=== PATIENT | male | born 1995 | race Caucasian/White ===

== ENCOUNTER 2021-01-21 10:10 | Emergency (ER) | payer OTHER ==
[~2021-01-21 10:10] MED LIST: COLACE 100MG C100 MG PO
[2021-01-21] MEDS ORDERED: NAPROSYN500 MG PO (11:29)
== END 2021-01-21 11:46 | disposition home or self-care (01) ==
LOC: ER1 10:10
DX: S83.92XA Sprain of unspecified site of left knee, initial encounter (principal); F17.200 Nicotine dependence, unspecified, uncomplicated; X50.1XXA Overexertion from prolonged static or awkward postures, initial encounter; Y92.481 Parking lot as the place of occurrence of the external cause
CPT/HCPCS: 73564; 99283